=== PATIENT | male | born 1965 | race Caucasian/White ===

== ENCOUNTER 2018-05-18 00:02 | Observation (INO) ==
[2018-05-18 00:08] VITALS: TEMP 98.5
[2018-05-18] MEDS ORDERED: Sodium Chlor 0.9% Inj 500 ML IV.SIG ONE (00:35)
[2018-05-18 00:38] LABS: Alanine Aminotransferase 28 U/L (12-78); Albumin 3.9 g/dL (3.4-5.0); Anion Gap 10 meq/L (5-15); Aspartate Aminotransferase 39 U/L (15-37); Blood Urea Nitrogen 10 mg/dL (7-18); Calcium 8.2 mg/dL (8.5-10.1); Carbon Dioxide 25.8 meq/L (21.0-32.0); Chloride 110 meq/L (98-107); Glomerular Filtration Rate 70 mL/min (>89); Glucose,Random 105 mg/dL (74-106); Lipase 221 U/L (73-393); Potassium 3.9 meq/L (3.5-5.1); Sodium 146 meq/L (136-145)
[2018-05-18 00:40] LABS: Activated Partial Thrombo Time 25.5 sec (24.3-30.1); Prothrombin Time 9.7 sec (9.8-11.6)
--- NOTE | 2018-05-18 00:41 | XR ---
EXAM DATE: 05/18/2018 12:09 AM EDT AGE/SEX: 53 years / Male INDICATIONS: Med clearance, short of breath. CLINICAL DATA: This is the patient's initial encounter. Patient reports that signs and symptoms have been present for 1 day and indicates a pain score of 0/10. MEDICAL/SURGICAL HISTORY: None. None. COMPARISON: No prior exams available for comparison. FINDINGS: Rotated and underinflated portable AP view of the chest demonstrates a normal size cardiac silhouette . No effusion, consolidation, or pneumothorax is identified. The bones and soft tissues demonstrate n o acute abnormality. CONCLUSION: No acute cardiopulmonary abnormality is identified. Electronically signed by: Jorge Solorio MD 05/18/2018 12:39 AM EDT
[2018-05-18 00:42] LABS: Alkaline Phosphatase 104 U/L (45-117); Baso # (Auto) 0.1 th/mm3 (0.0-0.2); Baso % (Auto) 0.8 % (0.0-2.0); Creatine Kinase 187 U/L (39-308); Eos # (Auto) 0.2 th/mm3 (0.0-0.4); Eos % (Auto) 2.6 % (0.0-4.0); Hematocrit 43.1 % (39.0-51.0); Hemoglobin 14.9 gm/dL (13.0-17.0); Lymph # (Auto) 2.6 th/mm3 (1.0-4.8); Lymph % (Auto) 28.5 % (9.0-44.0); Mean Corpuscular HGB Conc 34.6 % (32.0-36.0); Mean Corpuscular Volume 89.7 fL (80.0-100.0); Mean Platelet Volume 9.3 fL (7.0-11.0); Mono # (Auto) 0.7 th/mm3 (0.0-0.9); Mono % (Auto) 7.4 % (0.0-8.0); Neut # (Auto) 5.6 th/mm3 (1.8-7.7); Neut % (Auto) 60.7 % (16.0-70.0); Platelet Count 209 th/mm3 (150-450); Red Blood Count 4.81 mil/mm3 (4.50-5.90); Red Cell Distribution Width 13.6 % (11.6-17.2); Total Protein 8.2 g/dL (6.4-8.2); White Blood Count 9.2 th/mm3 (4.0-11.0)
[2018-05-18 00:55] LABS: Creatine Kinase MB 1.5 ng/mL (0.5-3.6)
--- NOTE | 2018-05-18 01:56 | ED ---
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 The patient reports that he has a history of intermittent chest pain, however he does not see a primary care physician. He reports having a family history of heart disease. He reports that his dad at the age of 44 with a massive [place]. Patient reports that he has never been seen by a primary care physician for a physical exam. The patient reports that he smokes 3 packs of cigarettes per day. He is unsure whether he has any history of hypertension, hyperlipidemia, or diabetes. The patient reports that he became overheated in the back of the on air-conditioned police vehicle and then began to have shortness of breath. At that time he developed a [id number] episode of chest pain in the center of his chest that felt like he was being punched. He reports that when he was able to get out of the vehicle and get some air the pain resolved. The patient reports that he did have nausea associated with this. He reports that he also had sweating. He denies having any radiation of pain. He denies ever having a stress test done previously. On review of systems otherwise, the patient denies having any new or worsening cough or congestion (he has a history of chronic smoker's cough), neck pain, abdominal pain, vomiting, diarrhea, urinary symptoms, or neurologic symptoms. Related Data Home Medications Medication Instructions Recorded Confirmed No Known Home Medications 05/18/18 05/18/18 Allergies Allergy/AdvReac Type Severity Reaction Status Date / Time No Known Allergies Allergy Unverified 05/18/18 00:08 Review of Systems ROS: all other systems reviewed are negative [facility] Medical History Medical History COPD (chronic obstructive pulmonary disease) (Acute) Social History Social History Substance History: No History of Abuse Second Hand Smoke Exposure: No Smoking Status: Heavy tobacco smoker Tobacco Type: Cigarettes Packs Per Day: 3 Cigarettes Per Day: 60.0 How Often Do You Have a Drink Containing Alcohol: Monthly or less Recent Travel in [facility] within the Last 8 Weeks: No Recent Out of Country Travel within the Last 8 Weeks: No Immunization History Tetanus Immunization: Unsure Exam Const General: cooperative, no acute distress and well developed Nutritional Appearance: well nourished Orientation: alert, awake and oriented x3 HENMT Head: normocephalic and atraumatic Nose: no nasal discharge and no epistaxis Mouth: moist mucous membranes Eyes Sclera: normal sclerae Pupils: PERRL Neck Neck: no meningeal signs, trachea midline and no JVD Resp Effort & Inspection: no use of accessory muscles Auscultation: no rales, no rhonchi and wheezes (No evidence of respiratory distress associated with this. No tripoding. No paroxysmal abdominal breathing , no conversational dyspnea.) expiratory wheezes and lower bilaterally Cardio Rate: regular rate Rhythm: regular rhythm Heart Sounds: no murmurs GI Inspection: non-distended Palpation: soft, no hepatosplenomegaly and nontender Skin General: dry skin (warm) Neuro General: alert, awake, oriented x3 and other (Grossly nonfocal.) Speech: speech normal Motor: no movement abnormalities noted Extrem General: normal to inspection (2+ pulses in all 4 extremity), no calf tenderness , no clubbing, no cyanosis and no edema Psych Mood: congruent mood Affect: normal affect Judgment: judgment good Course Initial Documented Vital Signs Temperature 98.5 F 05/18/18 00:05 Pulse Rate 95 H 05/18/18 00:05 Respiratory Rate 16 05/18/18 00:05 Blood Pressure 129/83 05/18/18 00:05 Pulse Oximetry 95 05/18/18 00:05 Last Documented Vital Signs Temperature 98.5 F 05/18/18 04:00 Pulse Rate 82 05/18/18 04:00 Respiratory Rate 17 05/18/18 04:00 Blood Pressure 141/67 H 05/18/18 04:00 Pulse Oximetry 95 05/18/18 04:00 Medical Decision Making MDM Narrative Medical decision making narrative: During the course of the patient's emergency department visit, the patient's history, examination, and differential diagnosis were reviewed with the patient. The patient was placed on a monitor technician with oximetry and frequent blood pressure monitoring. The patient had IV access obtained and blood work sent for analysis. A cardiac evaluation was started regarding the patient's chest pain. The patient was initially provided a DuoNeb x1. Aspirin 324 mg p.o. x1, nitroglycerin 1/2 inch to the chest wall. The patient's diagnostic studies are remarkable for a CBC that is within normal limits, normal coagulation profile, chemistry shows a sodium of 146, chloride 110, GFR 70, calcium 8.2, AST 39, initial set of cardiac enzymes are negative, lipase 221. Chest x-ray showed no acute abnormality. The patient will be admitted to the chest pain center for rule out serial cardiac enzyme protocol followed by consideration for stress testing. The patient's results were discussed with the patient, including the plan of care. I explained that further testing and/ or monitoring is indicated based on the patient's history, examination, and/ or laboratory findings. Therefore, I recommended admission for additional evaluation. The patient expressed understanding and was agreeable with this plan. The patient was admitted to the hospital in stable condition and sent to a bed under the care of the [facility]. Medical Screen Exam Complete: Yes Emergency Medical Condition: Yes Differential Diagnosis Differential Diagnosis: Acute coronary syndrome, versus COPD exacerbation, versus pneumothorax Medical Records Medical records reviewed: Yes I reviewed the patient's medical records. Lab Data Lab results reviewed: Yes I reviewed the patient's lab results. Result diagrams: 05/18/18 00:15 05/18/18 00:15 Lab Results 05/18/18 05/18/18 05/18/18 Range/Units 00:15 00:15 00:15 WBC 9.2 (4.0-11.0) th/mm3 RBC 4.81 (4.50-5.90) mil/mm3 Hgb 14.9 (13.0-17.0) gm/dL Hct 43.1 (39.0-51.0) % MCV 89.7 (80.0-100.0) fL MCH 31.0 (27.0-34.0) pg MCHC 34.6 (32.0-36.0) % RDW 13.6 (11.6-17.2) % Plt Count 209 (150-450) th/mm3 MPV 9.3 (7.0-11.0) fL Neut % (Auto) 60.7 (16.0-70.0) % Lymph % (Auto) 28.5 (9.0-44.0) % Haines % (Auto) 7.4 (0.0-8.0) % Eos % (Auto) 2.6 (0.0-4.0) % Baso % (Auto) 0.8 (0.0-2.0) % Neut # (Auto) 5.6 (1.8-7.7) th/mm3 Lymph # (Auto) 2.6 (1.0-4.8) th/mm3 Haines # (Auto) 0.7 (0.0-0.9) th/mm3 Eos # (Auto) 0.2 (0.0-0.4) th/mm3 Baso # (Auto) 0.1 (0.0-0.2) th/mm3 WBC Differential . Differential Comment Auto diff final PT 9.7 L (9.8-11.6) sec INR 1.0 Ratio APTT 25.5 (24.3-30.1) sec Sodium 146 H (136-145) meq/L Potassium 3.9 (3.5-5.1) meq/L Chloride 110 H (98-107) meq/L Carbon Dioxide 25.8 (21.0-32.0) meq/L Anion Gap 10 (5-15) meq/L BUN 10 (7-18) mg/dL Creatinine 1.09 (0.60-1.30) mg/dL Estimated GFR 70 L (>89) mL/min Random Glucose 105 (74-106) mg/dL Calcium 8.2 L (8.5-10.1) mg/dL Total Bilirubin 0.3 (0.2-1.0) mg/dL AST 39 H (15-37) U/L ALT 28 (12-78) U/L Alkaline Phosphatase 104 (45-117) U/L Total Creatine Kinase 187 (39-308) U/L CK-MB (CK-2) 1.5 (0.5-3.6) ng/mL Troponin I Less than 0.02 L (0.02-0.05) ng/mL Total Protein 8.2 (6.4-8.2) g/dL Albumin 3.9 (3.4-5.0) g/dL Lipase 221 (73-393) U/L 05/18/18 05/18/18 Range/Units 03:40 06:50 WBC (4.0-11.0) th/mm3 RBC (4.50-5.90) mil/mm3 Hgb (13.0-17.0) gm/dL Hct (39.0-51.0) % MCV (80.0-100.0) fL MCH (27.0-34.0) pg MCHC (32.0-36.0) % RDW (11.6-17.2) % Plt Count (150-450) th/mm3 MPV (7.0-11.0) fL Neut % (Auto) (16.0-70.0) % Lymph % (Auto) (9.0-44.0) % Haines % (Auto) (0.0-8.0) % Eos % (Auto) (0.0-4.0) % Baso % (Auto) (0.0-2.0) % Neut # (Auto) (1.8-7.7) th/mm3 Lymph # (Auto) (1.0-4.8) th/mm3 Haines # (Auto) (0.0-0.9) th/mm3 Eos # (Auto) (0.0-0.4) th/mm3 Baso # (Auto) (0.0-0.2) th/mm3 WBC Differential Differential Comment PT (9.8-11.6) sec INR Ratio APTT (24.3-30.1) sec Sodium (136-145) meq/L Potassium (3.5-5.1) meq/L Chloride (98-107) meq/L Carbon Dioxide (21.0-32.0) meq/L Anion Gap (5-15) meq/L BUN (7-18) mg/dL Creatinine (0.60-1.30) mg/dL Estimated GFR (>89) mL/min Random Glucose (74-106) mg/dL Calcium (8.5-10.1) mg/dL Total Bilirubin (0.2-1.0) mg/dL AST (15-37) U/L ALT (12-78) U/L Alkaline Phosphatase (45-117) U/L Total Creatine Kinase 190 166 (39-308) U/L CK-MB (CK-2) (0.5-3.6) ng/mL Troponin I Less than 0.02 L Less than 0.02 L (0.02-0.05) ng/mL Total Protein (6.4-8.2) g/dL Albumin (3.4-5.0) g/dL Lipase (73-393) U/L Imaging Data Radiologist's impression: Chest X-Ray 05/18/18 00:09 CONCLUSION: No acute cardiopulmonary abnormality is identified. ECG Data Attestation: I personally reviewed and interpreted this ECG as follows: Interpretation: The patient had an EKG done on arrival. The patient had no evidence of ST segment elevation. Discharge Plan Discharge Disposition Patient Disposition: 30 Still Patient Discharge Details Diagnosis: Chest pain, rule out acute myocardial infarction Physicians Team ED Provider: Sangeeta Ashford Primary Care Provider: Primary Care Robyn Kelley Attending Provider: Janie Macias Status ED Status: Left Department Discharge Information Discharge Date/Time: 05/18/18 04:22
[2018-05-18] MEDS ORDERED: Acetaminophen 500 MG Tablet PO PRN (03:27)
[2018-05-18 04:16] LABS: Creatine Kinase 190 U/L (39-308)
[2018-05-18 05:56] VITALS: BP 141/67; PULSE 82; RESP 17; O2SAT 95
[2018-05-18 07:32] LABS: Creatine Kinase 166 U/L (39-308)
--- NOTE | 2018-05-18 08:14 | P.HPCA ---
History of Present Illness Primary Care Physician: No Primary Care Physician Chief Complaint: Chest pain History of Present Illness: This is a 53-year-old male with history of tobacco abuse that presents to ED while in police custody with complaint of chest discomfort patient states had 2 episodes of chest discomfort yesterday. Describes it as sharp pains. The first discomfort lasted about 30 minutes with associated shortness of breath. The second episode occurred while he was in police custody in the back of the police car, states is very hot and that the discomfort resolved almost immediately after getting out of the hot car. Cannot recall prior cardiac workup. States he has not seen a PCP or had labs to check his lipid panel. Has not had physical exam in years. Denies recent illness. Denies fevers or chills. Patient denies hypertension, hyperlipidemia, diabetes, and known CAD. Patient smokes on average 3 packs cigarettes daily. States that his father age 44 of an [place]. - Diagnosis (1) Chest pain (2) Tobacco abuse Review of Systems General: Patient denies fevers, chills, and recent travel. HEENT: Patient denies headache, sore throat, difficulty swallowing. Cardiovascular: Has the chest discomfort as mentioned above. Denies sensation of heart beating rapidly or irregularly. No syncope. Respiratory: States he has a chronic nonproductive cough. He was short of breath yesterday. Denies shortness of breath or inspirational chest discomfort. Denies wheezing or hemoptysis. GI: Patient denies nausea, vomiting, diarrhea, abdominal pain, bloody stools. Musculoskeletal: Patient denies joint pain or edema. Denies calf pain or edema. Neurovascular: Patient denies numbness, tingling, weakness in extremities. Denies headache. Endocrine: Denies polyuria and polydipsia. Hematologic: Denies easy bruising. Skin: Denies rash or itching. PMFSH - History History Provided By: Patient - Medical History Medical History: Medical History (Last Updated 05/18/18 @ 00:06 by Cheryl Garrido RN) COPD (chronic obstructive pulmonary disease) - Tobacco History Second Hand Smoke Exposure: No Tobacco Use In Past 30 Days: Yes Smoking Status: Heavy tobacco smoker Tobacco Type: Cigarettes - Alcohol History How Often Do You Have a Drink Containing Alcohol: Monthly or less - Substance Use History Substance History: No History of Abuse - Travel History Recent Travel in the [place] Within the Last 8 Weeks: No Recent Travel Out of the Country Within the Last 8 Weeks: No - Immunization History Tetanus Immunization: Unsure Medications and Allergies Active Medications: Active Medications Acetaminophen (Tylenol) 500 mg PO Q4H PRN PRN Reason: HEADACHE Sodium Chloride (Ns Flush) 2 ml IV.FLUSH UNSCH PRN PRN Reason: FLUSH AFTER USING IV ACCESS Sodium Chloride (Ns Flush) 2 ml IV.FLUSH PRN PRN PRN Reason: FLUSH AFTER USING IV ACCESS Sodium Chloride (Ns Flush) 2 ml IV.FLUSH BID TIN Allergies Allergy/AdvReac Type Severity Reaction Status Date / Time No Known Allergies Allergy Unverified 05/18/18 00:08 Home Medications Medication Instructions Recorded Confirmed Type No Known Home Medications 05/18/18 05/18/18 History Exam Vital signs: Vital Signs 05/18/18 00:05 05/18/18 00:19 05/18/18 00:43 Temperature 98.5 F Pulse Rate 95 H 102 H Respiratory Rate 16 20 Blood Pressure 129/83 Pulse Oximetry 95 95 05/18/18 01:34 05/18/18 04:00 Temperature 98.5 F Pulse Rate 98 H 82 Respiratory Rate 16 17 Blood Pressure 125/74 141/67 H Pulse Oximetry 99 95 Intake & Output 05/17/18 05/18/18 05/18/18 18:59 06:59 18:59 Intake Total 500 / 500 Balance 500 / 500 Weight 72.575 kg Intake: IV 500 / 500 NS Inj 500 ML @ Wide Open IV. 500 / 500 SIG BOLUS ONE Rx#:[id number] Other: Weight On Admission 72.575 kg Narrative: GENERAL: This is a well-nourished, well-developed patient, in no apparent distress. Patient speaks in clear complete sentences. Patient is pleasant. HEENT: Head is atraumatic and normocephalic. Neck is supple without lymphadenopathy and trachea is midline. No JVD or carotid bruits. CARDIOVASCULAR: Regular rate and rhythm without murmurs, gallops, or rubs. RESPIRATORY: Clear to auscultation. Breath sounds equal bilaterally. No wheezes , rales, or rhonchi. Chest wall is nontender. No use of accessory muscles. GASTROINTESTINAL: Abdomen is nontender, nondistended. Abdomen soft. No obvious pulsatile mass or bruit. No CVA tenderness. Strong femoral pulses bilaterally. Normal bowel sounds in all quadrants. MUSCULOSKELETAL: Patient is moving upper and lower extremities freely. No calf tenderness or edema, no Homans sign. Strong pulses in upper and lower extremities. NEUROLOGICAL: Patient is alert and oriented. Cranial nerves 2-12 are grossly intact. No focal deficits and speech is clear. SKIN: No rash and turgor is normal. Results 05/18/18 00:15 05/18/18 00:15 Cardiac Enzymes 05/18/18 05/18/18 05/18/18 Range/Units 00:15 03:40 06:50 AST 39 H (15-37) U/L CK-MB (CK-2) 1.5 (0.5-3.6) ng/mL Troponin I Less than 0.02 L Less than 0.02 L Less than 0.02 L (0.02-0.05) ng/mL Coagulation 05/18/18 Range/Units 00:15 PT 9.7 L (9.8-11.6) sec APTT 25.5 (24.3-30.1) sec CBC 05/18/18 Range/Units 00:15 WBC 9.2 (4.0-11.0) th/mm3 RBC 4.81 (4.50-5.90) mil/mm3 Hgb 14.9 (13.0-17.0) gm/dL Hct 43.1 (39.0-51.0) % Plt Count 209 (150-450) th/mm3 Neut # (Auto) 5.6 (1.8-7.7) th/mm3 Lymph # (Auto) 2.6 (1.0-4.8) th/mm3 Riley # (Auto) 0.7 (0.0-0.9) th/mm3 Eos # (Auto) 0.2 (0.0-0.4) th/mm3 Baso # (Auto) 0.1 (0.0-0.2) th/mm3 Comprehensive Metabolic Panel 05/18/18 Range/Units 00:15 Sodium 146 H (136-145) meq/L Potassium 3.9 (3.5-5.1) meq/L Chloride 110 H (98-107) meq/L Carbon Dioxide 25.8 (21.0-32.0) meq/L BUN 10 (7-18) mg/dL Creatinine 1.09 (0.60-1.30) mg/dL Calcium 8.2 L (8.5-10.1) mg/dL AST 39 H (15-37) U/L ALT 28 (12-78) U/L Alkaline Phosphatase 104 (45-117) U/L Total Protein 8.2 (6.4-8.2) g/dL Albumin 3.9 (3.4-5.0) g/dL Intake and Output 05/17/18 05/18/18 05/18/18 22:59 06:59 14:59 Intake Total 500 / 500 Balance 500 / 500 Intake: IV 500 / 500 NS Inj 500 ML @ Wide Open IV. 500 / 500 SIG BOLUS ONE Rx#:[id number] Other: Weight 72.575 kg Weight On Admission 72.575 kg - Imaging and Cardiology Imaging: Impressions Chest X-Ray 05/18/18 00:09 CONCLUSION: No acute cardiopulmonary abnormality is identified. EKG interpretations - EKG EKG shows: sinus rhythm (EKGs are sinus rhythm with right bundle branch block. No significant ST segment depressions or elevations. PVC noted per) Caprini VTE Risk Assessment Caprini VTE Risk Assessment: No/Low Risk (score <= 1) Caprini Risk Assessment Model: Point Value = 1 Point Value = 2 Point Value = 3 Point Value = 5 Age 41-60 Minor surgery BMI > 25 kg/m2 Swollen legs Varicose veins or History of unexplained or recurrent spontaneous Oral contraceptives or hormone replacement Sepsis (< 1 month) Serious lung disease, including pneumonia (< 1 month) Abnormal pulmonary function Acute myocardial infarction Congestive heart failure (< 1 month) History of inflammatory bowel disease Medical patient at bed rest Age 61-74 Arthroscopic surgery Major open surgery (> 45 min) Laparoscopic surgery (> 45 min) Malignancy Confined to bed (> 72 hours) Immobilizing plaster cast Central venous access Age >= 75 History of VTE Family history of VTE Factor V Leiden Prothrombin [id number] Lupus anticoagulant Anticardiolipin antibodies Elevated serum homocysteine Heparin-induced thrombocytopenia Other congenital or acquired thrombophilia Stroke (< 1 month) Elective arthroplasty Hip, pelvis, or leg fracture Acute spinal cord injury (< 1 month) Prophylaxis Regimen: Total Risk Factor Score Risk Level Prophylaxis Regimen 0-1 Low Early ambulation 2 Moderate Order ONE of the following: *Sequential Compression Device (SCD) *Heparin 5000 units SQ BID 3-4 Higher Order ONE of the following medications: *Heparin 5000 units SQ TID *Enoxaparin/Lovenox 40 mg SQ daily (WT < 150 kg, CrCl > 30 mL/min) *Enoxaparin/Lovenox 30 mg SQ daily (WT < 150 kg, CrCl > 10-29 mL/min) *Enoxaparin/Lovenox 30 mg SQ BID (WT < 150 kg, CrCl > 30 mL/min) AND/OR *Sequential Compression Device (SCD) 5 or more Highest Order ONE of the following medications: *Heparin 5000 units SQ TID (Preferred with Epidurals) *Enoxaparin/Lovenox 40 mg SQ daily (WT < 150 kg, CrCl > 30 mL/min) *Enoxaparin/Lovenox 30 mg SQ daily (WT < 150 kg, CrCl > 10-29 mL/min) *Enoxaparin/Lovenox 30 mg SQ BID (WT < 150 kg, CrCl > 30 mL/min) AND *Sequential Compression Device (SCD) Assessment and Plan - Assessment (1) Chest pain Code(s): R07.9 - Chest pain, unspecified Status: Acute (2) Tobacco abuse Code(s): Z72.0 - Tobacco use Status: Acute - Plan * Chest pain: Patient has had serial cardiac enzymes and EKGs for ruling out purposes. He was seen by Dr. Juan Martel of cardiology in the chest pain center. He will undergo a Lexiscan and if nonischemic will be discharged home with instructions to follow-up with PCP. Return to ED for interval issues. * Tobacco abuse: Patient has been counseled on the importance of smoking cessation. Patient is stable at this time. He is agreeable to this plan. H&P: Quality - VTE Deep Vein Thrombosis/Pulmonary Embolism Present on Admission: No
[2018-05-18] MEDS ORDERED: Regadenoson Inj 0.4 MG/5 ML Syringe IV.PUSH ONE (08:59)
--- NOTE | 2018-05-18 08:59 | ECG ---
Date Performed: 05/18/2018 Time Performed: 07:13:41 PTAGE: 53 years EKG: Sinus rhythm WITH OCCASIONAL SUPRAVENTRICULAR PREMATURE COMPLEXES RIGHT BUNDLE BRANCH BLOCK ABNORMAL ECG NO PREVIOUS TRACING DOCTOR: Charles Miller Interpretating Date/Time 05/18/2018 08:58:18
--- NOTE | 2018-05-18 09:02 | ECG ---
Date Performed: 05/18/2018 Time Performed: 03:40:03 PTAGE: 53 years EKG: Sinus rhythm INDETERMINATE AXIS RIGHT BUNDLE BRANCH BLOCK ABNORMAL ECG NO PREVIOUS TRACING DOCTOR: Charles Miller Interpretating Date/Time 05/18/2018 09:01:21
--- NOTE | 2018-05-18 09:21 | ECG ---
Date Performed: 05/18/2018 Time Performed: 00:08:03 PTAGE: 53 years EKG: Sinus rhythm RIGHT BUNDLE BRANCH BLOCK ABNORMAL ECG NO PREVIOUS TRACING DOCTOR: Charles Miller Interpretating Date/Time 05/18/2018 09:20:18
--- NOTE | 2018-05-18 10:05 | NM ---
EXAM DATE: 05/18/2018 8:00 AM EDT AGE/SEX: 53 years / Male INDICATIONS:Angina. . Chest pain. CLINICAL DATA: This is the patient's initial encounter. Patient reports that signs and symptoms have been present for 1 day and indicates a pain score of 2/10. MEDICAL/SURGICAL HISTORY: Chronic obstructive pulmonary disease. None. COMPARISON: No prior exams available for comparison. DOSE: 8.8 mCi Tc 99m Myoview at rest 25.4 mCi [id number] at stress 0.4 mg Lexiscan STRESS SYMPTOMS: Dyspnea and nausea. EJECTION FRACTION: >70 % TECHNIQUE: The patient underwent pharmacologic stress with infusion of prescribed dose. Continuous ECG tracing was monitored during stress. Gated SPECT imaging was performed after stress and conventi onal SPECT imaging was performed at rest. The examination was performed on a SPECT/CT scanner, both attenuation and non-corrected datasets were reviewed. FINDINGS: Distribution: The maximum perfused segment at stress is in the septal wall. Perfusion Study: The pattern of perfusion at stress is within normal limits. Gated Study: There are intact wall motion and wall thickening without hypokinetic or dyskinetic segm ents. The ejection fraction is calculated at >70%. RISK CATEGORY: Low (<1% Annual Motality Rate) CONCLUSION: 1. No reversible defects observed to suggest acute ischemia.. Electronically signed by: Srikanth Will MD 05/18/2018 10:04 AM EDT
--- NOTE | 2018-05-18 14:57 | TR ---
Date Performed: 05/18/2018 Time Performed: 08:58:04 DOCTOR: Juan Martel DRUG LIST: CLINICAL HISTORY: REASON FOR TEST: REASON FOR ENDING: OBSERVATION: CONCLUSION: COMMENTS: Lexiscan stress test was performed under standard four minute protocol. Radionuclide was injected one minute prior to ending the test. No electrocardiographic abormalities were present t o suggest ischemia. Nuclear imaging and interpretation are pending.
== END 2018-05-18 10:29 | disposition home or self-care (01) ==
LOC: NEDA 00:02 → NEPC 00:02 → NEDA 04:22 → NEPGCP 04:23
PROVIDERS: ADMIT Internal Medicine Interventional Cardiology; ATTEND Internal Medicine Interventional Cardiology